=== PATIENT | female | born 2000 | race Caucasian/White ===

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

== ENCOUNTER 2020-08-07 20:32 | Emergency (ER) | payer MEDICAID ==
--- NOTE | 2020-08-07 20:42 | EDM.PDOC ---
ED HPI GENERAL MEDICAL PROBLEM - General Chief Complaint: Back Pain or Injury Stated Complaint: LOWER RT BACK PAIN Time Seen by Provider: 08/07/20 20:36 Source of Information: Reports: Patient History Limitations: Reports: No Limitations - History of Present Illness INITIAL COMMENTS - FREE TEXT/NARRATIVE: HISTORY AND PHYSICAL: History of present illness: Patient is a 20-year-old female who presents to the emergency room with her mother with concerns of right flank pain that started a few hours ago. Patient states approximately a year ago she did have a kidney stone, pain feels similar. Patient denies any fever, chills, headache, change in vision, syncope or near syncope. Denies any chest pain, shortness of breath or cough. Denies any abdominal pain, nausea, vomiting, diarrhea, constipation or dysuria. Has not noted any blood in urine or stool. No concern for . Patient has been eating and drinking appropriately. Review of systems: As per history of present illness and below otherwise all systems reviewed and negative. Past medical history: As per history of present illness and as reviewed below otherwise noncontributory. Surgical history: As per history of present illness and as reviewed below otherwise noncontributory. Social history: See social history for further information Family history: As per history of present illness and as reviewed below otherwise noncontributory. Physical exam: General: Well developed and well nourished. Alert and orientated x 3. Nontoxic in appearance and in no acute distress. Vital signs are stable and have been reviewed by me. Nursing notes were reviewed. Accompanied by mother. HEENT: Atraumatic, normocephalic, pupils equal and reactive bilaterally, negative for conjunctival pallor or scleral icterus, mucous membranes moist, trachea midline. No drooling or trismus noted. No meningeal signs. No hot potato voice noted. Lungs: Clear to auscultation bilaterally. No wheezes, rales, or rhonchi. Chest nontender. Normal work of breathing, no accessory muscles used. Heart: S1S2, regular rate and rhythm without overt murmur, gallops, or rubs. No JVD. No peripheral edema Abdomen: Soft, nondistended, nontender. Normoactive bowel sounds. Negative for masses. Mild right sided costovertebral tenderness. C-spine/Back: No pinpoint vertebral tenderness upon palpation. No crepitus, step-offs or obvious deformities. Patient is ambulatory into the emergency room without difficulty or deficit. Denies any urinary or fecal incontinence. Denies any numbness, tingling or saddle paresthesia. No concerns of serious infection, fracture or cord compression, or cauda equina syndrome. Deep tendon reflexes brisk bilaterally. Skin: Intact, warm, dry. No lesions or rashes noted. Hematologic: No petechiae or purpra. Mucosa appropriate color and normal nail bed color and refill. Extremities: Atraumatic, moves all extremities per self without difficulty or deficits. Neurovascular unremarkable. Neuro: Awake, alert, oriented. Cranial nerves II through XII unremarkable. Cerebellum unremarkable. Motor and sensory unremarkable throughout. Exam nonfocal. Psychiatric: Mood and affect are appropriate. Normal thought process. Answering questions appropriately. Notes: *This patient was seen and evaluated during the 2019 SARS-CoV-2 novel coronavirus pandemic period. Community viral transmission is ongoing at time of this encounter and the emergency department is operating under pandemic response procedures. Urine doesn't show any blood or RBCs, I do not feel she needs a CT to rule out kidney stone at this time. Will treat for UTI as this last time she voided she states it was slightly uncomfortable. She states she had Diclofenac in the past, help with per kidney stone/flank pain. Will refill with education. I have talked with the patient about today's findings, in addition to providing specific details for plan of care. Reassessment at the time of disposition demonstrates that the patient is in no acute distress. The patient is stable for discharge, counseling was provided and we discussed in great detail signs and symptoms that would prompt them to return to the Emergency Department. Medication, follow up and supportive care measures were reviewed and discussed. Voices understanding and is agreeable to plan of care. Denies any further questions or concerns at this time. Diagnostics: UA, HCGU Therapeutics: Macrobid, Ibuprofen Prescription: Macrobid, Diclofenac Impression: UTI Plan: 1. You were evaluated today on an emergent basis. Your urine shows early UTI. Take medications as directed. 2. You can alternate Tylenol and ibuprofen as needed for pain and fever management. 3. We encourage you to follow up with your primary care provider and/or recommended specialist in the next few days for re-evaluation and further care/management. 4. If your symptoms should worsen, new symptoms develop or any of the signs and symptoms we discussed should arise please return to the emergency room or call 911 (if needed). Definitive disposition and diagnosis as appropriate pending reevaluation and review of above. right back Pain Score (Numeric/FACES): 9 - Related Data Allergies Allergy/AdvReac Type Severity Reaction Status Date / Time amoxicillin Allergy Rash Verified 08/07/20 20:49 clavulanic acid Allergy Hives Verified 08/07/20 20:49 [From Augmentin] Home Meds: Home Meds . 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 Musculoskeletal History: Reports: None Neurological History: Reports: None Psychiatric History: Reports: None Endocrine/Metabolic History: Reports: None Hematologic History: Reports: None Oncologic (Cancer) History: Reports: None Dermatologic History: Reports: None - Infectious Disease History Infectious Disease History: Reports: None - Past Surgical History Head Surgeries/Procedures: Reports: None HEENT Surgical History: Reports: Adenoidectomy, Tonsillectomy GI Surgical History: Reports: None Musculoskeletal Surgical History: Reports: None Social & Family History - Family History Family Medical History: No Pertinent Family History - Caffeine Use Caffeine Use: Reports: Coffee, Energy Drinks, Soda ED ROS GENERAL - Review of Systems Review Of Systems: Comprehensive ROS is negative, except as noted in HPI. ED EXAM,LOWER BACK PAIN/INJURY - Physical Exam Exam: See Below (See dictation) Course - Vital Signs Last Recorded V/S: Last Vital Signs Temp 98.4 F 08/07/20 20:50 Pulse 73 08/07/20 20:50 Resp 17 08/07/20 20:50 BP 116/80 08/07/20 20:50 Pulse Ox 99 08/07/20 20:50 - Orders/Labs/Meds Orders: Active Orders 24 hr Category Date Time Status CULTURE URINE [RM] Stat Lab 08/07/20 20:43 Received Labs: Laboratory Tests 08/07/20 08/07/20 Range/Units 20:43 20:43 Urine Color YELLOW Urine Appearance CLEAR Urine pH 6.0 (5.0-8.0) Ur Specific [place] >= 1.030 (1.001-1.035) Urine Protein NEGATIVE (NEGATIVE) mg/dL Urine Glucose (UA) NEGATIVE (NEGATIVE) mg/dL Urine Ketones NEGATIVE (NEGATIVE) mg/dL Urine Occult Blood NEGATIVE (NEGATIVE) Urine Nitrite NEGATIVE (NEGATIVE) Urine Bilirubin NEGATIVE (NEGATIVE) Urine Urobilinogen 0.2 (<2.0) EU/dL Ur Leukocyte Esterase SMALL H (NEGATIVE) Urine RBC 0-2 (0-2/HPF) Urine WBC 3-6 (0-5/HPF) Ur Epithelial Cells FEW (NONE-FEW) Urine Bacteria FEW (NEGATIVE) Urine Mucus LIGHT (NONE-MOD) Urine HCG, Qual NEGATIVE (NEGATIVE) Departure - Departure Time of Disposition: 21:11 Disposition: Home, Self-Care 01 Clinical Impression: UTI (urinary tract infection) Qualifiers: Urinary tract infection type: acute cystitis Hematuria presence: without hematuria Qualified Code(s): N30.00 - Acute cystitis without hematuria - Discharge Information Instructions: Urinary Tract Infection, Adult, [id number] Referrals: Sushant Magallon MD [Primary Care Provider] - Forms: ED Department Discharge Additional Instructions: The following information is given to patients seen in the emergency department who are being discharged to home. This information is to outline your options for follow-up care. We provide all patients seen in our emergency department wi th a follow-up referral. The need for follow-up, as well as the timing and circumstances, are variable depending upon the specifics of your emergency department visit. If you don't have a primary care physician on staff, we will provide you with a referral. We always advise you to contact your personal physician following an emergency department visit to inform them of the circumstance of the visit and for follow-up with them and/or the need for any referrals to a consulting specialist. The emergency department will also refer you to a specialist when appropriate. This referral assures that you have the opportunity for follow-up care with a specialist. All of these measure are taken in an effort to provide you with optimal care, which includes your follow-up. Under all circumstances we always encourage you to contact your private physician who remains a resource for coordinating your care. When calling for follow-up care, please make the office aware that this follow-up is from your recent emergency room visit. If for any reason you are refused follow-up, please contact the [facility] Emergency Department at and asked to speak to the emergency department charge nurse. [facility] [address] [place] [address] [facility] [address] [place] [address] Thank you for choosing the [facility] emergency department in [facility] for your medical needs today. It was a pleasure caring for you. Today you were seen in the emergency department for back pain. 1. You were evaluated today on an emergent basis. Your urine shows early UTI. Take medications as directed. 2. You can alternate Tylenol and ibuprofen as needed for pain and fever management. 3. We encourage you to follow up with your primary care provider and/or recommended specialist in the next few days for re-evaluation and further care/management. 4. If your symptoms should worsen, new symptoms develop or any of the signs and symptoms we discussed should arise please return to the emergency room or call 911 (if needed). Sepsis Event Note (ED) - Focused Exam Vital Signs: Vital Signs Temp Pulse Resp BP Pulse Ox 08/07/20 20:50 98.4 F 73 17 116/80 99 - My Orders Last 24 Hours: My Active Orders 08/07/20 20:43 CULTURE URINE [RM] Stat - Assessment/Plan Last 24 Hours: My Active Orders 08/07/20 20:43 CULTURE URINE [RM] Stat
[2020-08-07] MEDS ORDERED: Ibuprofen 800 MG Tab PO ONE (21:12)
[2020-08-07] MEDS ORDERED: Nitrofurantoin Monohydrate/Macrocrystalline 100 MG Cap PO ONE (21:12)
[2020-08-07 21:29] VITALS: BP 110/73; PULSE 79
== END 2020-08-07 21:31 | disposition home or self-care (01) ==
LOC: MW.ED 20:32
DX: N30.00 Acute cystitis without hematuria (principal); Z88.0 Allergy status to penicillin
CPT/HCPCS: 81001; 81025; 87086; A9270; 99283; 99284

== ENCOUNTER 2021-11-04 20:33 | Inpatient (IN) | payer MEDICAID ==
[2021-11-04] MEDS ORDERED: Sodium Chloride 0.9% 20 ML SDV IV PRN (22:02)
[2021-11-04] MEDS ORDERED: Misoprostol 200 MCG Tab PO PRN (22:02)
[2021-11-04] MEDS ORDERED: Ondansetron 4 MG/2 ML SDV IVPUSH PRN (22:02)
[2021-11-04] MEDS ORDERED: Carboprost Tromethamine 250 MCG/1 ML Amp IM PRN (22:02)
[2021-11-04] MEDS ORDERED: Lidocaine 1% 50 ML MDV INJECT PRN (22:02)
[2021-11-04] MEDS ORDERED: Water For Irrigation,Sterile 1,000 ML Container IRR PRN (22:02)
[2021-11-04] MEDS ORDERED: Sodium Chloride 0.9% 2.5 ML Syringe FLUSH PRN (22:02)
[2021-11-04] MEDS ORDERED: Butorphanol 1 MG/ML SDV IVPUSH PRN (22:02)
[2021-11-04] MEDS ORDERED: Tranexamic Acid 1,000 MG in Sodium Chloride 0.9% 100 ML IV PRN (22:02)
[2021-11-04] MEDS ORDERED: Methylergonovine 0.2 MG/1 ML Amp IM PRN (22:02)
[2021-11-04] MEDS ORDERED: Sodium Chloride 0.9% 10 ML Syringe FLUSH PRN (22:02)
[2021-11-04] MEDS ORDERED: Terbutaline 1 MG/ML SDV SUBCUT PRN (22:03)
[2021-11-04] MEDS ORDERED: Misoprostol 25 MCG (1/4 of 100 MCG) Tab VAG PRN ×2 (22:03)
[2021-11-04] MEDS ORDERED: Oxytocin/0.9 % Sodium Chloride 30 UNIT/500 ML BAG IV SCH ×2 (22:15)
[2021-11-04] MEDS: Lactated Ringers 1,000 ML IV SCH ×2 (22:25→23:22)
[2021-11-04] MEDS ORDERED: Ropivacaine HCl/PF 400 MG in Premix Bag 1 BAG EPIDUR SCH (23:45)
[2021-11-04] MEDS ORDERED: ePHEDrine 50 MG/ML SDV IVPUSH PRN (23:51)
[2021-11-05] MEDS: Lactated Ringers 1,000 ML IV SCH (01:46)
[2021-11-05] MEDS ORDERED: Bisacodyl 10 MG Supp RECTAL PRN (08:01)
[2021-11-05] MEDS ORDERED: Lanolin 100% Cream 7 GM Tube TOP PRN (08:01)
[2021-11-05] MEDS ORDERED: Benzocaine/Menthol 20%-0.5% Spray 78 GM Cannister TOP PRN (08:01)
[2021-11-05] MEDS ORDERED: Acetaminophen 500 MG Tab PO PRN (08:01)
[2021-11-05] MEDS: Witch Hazel Medicated Pads 40/Jar TOP PRN (08:56)
[2021-11-05] MEDS: Docusate Sodium 100 MG Cap PO PRN ×2 (08:57→20:59)
[2021-11-05] MEDS: Ibuprofen 800 MG Tab PO PRN ×2 (11:38→19:48)
[2021-11-06] MEDS: Witch Hazel Medicated Pads 40/Jar TOP PRN (06:04)
[2021-11-06 07:57] VITALS: BP 102/64; PULSE 54
[2021-11-06] MEDS: Ibuprofen 800 MG Tab PO PRN (11:55)
[2021-11-06] MEDS: Docusate Sodium 100 MG Cap PO PRN (11:59)
== END 2021-11-06 14:12 | disposition home or self-care (01) | DRG 807 ==
LOC: MW.OBCHECK 20:33 → MW.OB 20:35 → MW.OBCHECK 22:03 → MW.OB 22:03 → OBSVTOIN 11-05 05:21 → MW.OB 11-05 11:49
PROVIDERS: ADMIT Obstetrics & Gynecology; ATTEND Obstetrics & Gynecology
PROC: 10D07Z6 Extraction of Products of Conception, Vacuum, Via Natural or Artificial Opening (ICD-10-PCS; principal; 2021-11-05)
PROC: 0KQM0ZZ Repair Perineum Muscle, Open Approach (ICD-10-PCS; 2021-11-05)
PROC: 10907ZC Drainage of Amniotic Fluid, Therapeutic from Products of Conception, Via Natural or Artificial Opening (ICD-10-PCS; 2021-11-05)
PROC: 00HU33Z Insertion of Infusion Device into Spinal Canal, Percutaneous Approach (ICD-10-PCS; 2021-11-05)
PROC: 3E0R3BZ Introduction of Anesthetic Agent into Spinal Canal, Percutaneous Approach (ICD-10-PCS; 2021-11-05)
DX: O70.1 Second degree perineal laceration during delivery (principal); Z37.0 Single live birth; Z3A.39 39 weeks gestation of pregnancy; Z20.822 Contact with and (suspected) exposure to COVID-19; O76 Abnormality in fetal heart rate and rhythm complicating labor and delivery
CPT/HCPCS: 36415; 51702; 59025; 59409; 85014; 85018; 85027; 86592; 86850; 86900; 86901; A9270-GY; J2001; J2405; J2590; J2795; J7120; U0002

== ENCOUNTER 2025-02-27 23:10 | Emergency (ER) | payer MEDICAID ==
[2025-02-28] MEDS: Benzocaine 20% Topical Spray UD MUCMEM ONE (00:32)
[2025-02-28] MEDS: Acetaminophen/HYDROcodone 325-10 MG Tab PO ONE (00:32)
[2025-02-28] MEDS: Lidocaine 2% Viscous Solution 15 ML UD PO ONE (00:32)
[2025-02-28 01:23] VITALS: BP 97/62; PULSE 60
== END 2025-02-28 01:29 | disposition home or self-care (01) ==
LOC: MW.ED 23:10
DX: K05.30 Chronic periodontitis, unspecified (principal); K02.9 Dental caries, unspecified; Z79.899 Other long term (current) drug therapy; Z88.0 Allergy status to penicillin; Z88.1 Allergy status to other antibiotic agents; Z91.040 Latex allergy status
CPT/HCPCS: 99282; A9270; J3490